=== PATIENT | female | born 1980 | race Caucasian/White ===

== ENCOUNTER 2018-02-09 12:36 | Emergency (ER) | payer OTHER ==
[~2018-02-09] VITALS: Ht 157.5 cm; Wt 61.2 kg
[~2018-02-09 12:36] MED LIST: BUSPAR PO; CIPROFLOXACIN500 M1 PO; CLONAZEPAM; CONCERTA27 MG; LATUDA20 MG PO; LEXAPRO20 MG PO; PAXIL40 MG; PRENATAL PO; PROMETHAZINE12.5 M1 PO; PYRIDIUM200 MG PO; TRILEPTAL600 MG; ULTRAM 50MG TAB50 MG PO; XANAX 0.25 MG0.25 MG PO; XANAX 0.5 MG0.5 M1; ZITHROMAX500 MG PO; ZOFRAN ODT4 MG PO; ZOLOFT 50 MG TA50 M1 PO; ZPAK PO
[2018-02-09] MEDS ORDERED: TOPAMAX 100 MG100 MG PO (13:13)
[2018-02-09 13:47] LABS: INFLUENZA A ANTIGEN None Detected (None Detect); INFLUENZA B ANTIGEN None Detected (None Detect)
[2018-02-09 14:10] VITALS: BP 130/76
== END 2018-02-09 14:11 | disposition home or self-care (01) ==
LOC: M.ERS 12:36
PROVIDERS: Nurse Practitioner Family
DX: J02.9 Acute pharyngitis, unspecified (principal); B34.9 Viral infection, unspecified; F41.9 Anxiety disorder, unspecified; F31.9 Bipolar disorder, unspecified; Z88.0 Allergy status to penicillin; Z88.1 Allergy status to other antibiotic agents

== ENCOUNTER 2020-11-03 22:13 | Emergency (ER) | payer OTHER, MEDICAID ==
[~2020-11-03] VITALS: Ht 154.9 cm; Wt 72.6 kg
[~2020-11-03 22:13] MED LIST changes: +TOPAMAX 100 MG100 MG PO
[2020-11-03] MEDS ORDERED: VYVANSE20 MG PO (22:31)
[2020-11-04] MEDS ORDERED: HYDROCODON-ACE1 EAC8 PO (00:09)
[2020-11-04] MEDS ORDERED: FLEXERIL PO ×2 (00:10)
[2020-11-04 00:40] VITALS: BP 138/74
== END 2020-11-04 00:40 | disposition home or self-care (01) ==
LOC: M.ERS 22:13
DX: S20.211A Contusion of right front wall of thorax, initial encounter (principal); M79.645 Pain in left finger(s); Z88.0 Allergy status to penicillin; Z88.1 Allergy status to other antibiotic agents; Y08.89XA Assault by other specified means, initial encounter; Y93.89 Activity, other specified; Y92.89 Other specified places as the place of occurrence of the external cause; Y99.8 Other external cause status

== ENCOUNTER 2021-04-03 10:35 | Emergency (ER) | payer OTHER, MEDICAID ==
[~2021-04-03] VITALS: Ht 157.5 cm; Wt 72.6 kg
[~2021-04-03 10:35] MED LIST changes: +FLEXERIL PO; +HYDROCODON-ACE1 EAC8 PO; +VYVANSE20 MG PO
[2021-04-03 11:25] LABS: ABSOLUTE BASOPHILS 0.1 thou/uL (0.0-0.2); ABSOLUTE EOSINOPHILS 0.3 thou/uL (0.0-0.7); ABSOLUTE MONOCYTES 0.7 thou/uL (0.0-1.2); ABSOLUTE NEUTROPHILS 9.1 thou/uL (1.6-8.1); BASOPHILS 0.9 %; EOSINOPHILS 2.1 %; HEMATOCRIT 47.1 % (37.0-47.0); HEMOGLOBIN 15.5 gm/dL (12.0-15.0); LYMPHOCYTES 16.4 %; MCH 27.6 pg (26.0-34.0); MCV 83.6 fL (80.0-100.0); MONOCYTES 5.5 %; MPV 8.1 fl. (7.2-11.1); NUCLEATED RBCS 0 /100WBC; PLATELET COUNT* 314 thou/uL (150-400); POLYS 75.1 %; RBC 5.63 mil/uL (4.20-5.00); RDW-CV 13.8 % (10.5-14.5); WBC 12.1 thou/uL (4.0-11.0)
[2021-04-03 11:37] LABS: INFLUENZA A ANTIGEN Negative (Negative); INFLUENZA B ANTIGEN Negative (Negative)
[2021-04-03 11:39] LABS: CALCIUM 9.3 mg/dL (8.5-10.1); CREATININE 0.9 mg/dL (0.6-1.3); POTASSIUM 3.8 mmol/L (3.5-5.1)
[2021-04-03 11:44] LABS: ALBUMIN 3.9 g/dL (3.4-5.0); TOTAL BILIRUBIN 0.4 mg/dL (<0.1-1.0)
[2021-04-03] MEDS ORDERED: ZOFRAN ODT4 MG PO (13:15)
[2021-04-03] MEDS ORDERED: ZPAK PO (13:15)
[2021-04-03] MEDS ORDERED: VENTOLIN HFA 1818 GM INH (13:15)
[2021-04-03 13:22] VITALS: BP 149/96
--- NOTE | 2021-04-03 13:53 | EKG ---
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 04/03/21 1353 1128 112 Bob Goyal MD, FACC /EPI
== END 2021-04-03 13:23 | disposition home or self-care (01) ==
LOC: M.ERS 10:35
PROVIDERS: Nurse Practitioner Family
DX: J98.8 Other specified respiratory disorders (principal); Z20.822 Contact with and (suspected) exposure to COVID-19; K52.9 Noninfective gastroenteritis and colitis, unspecified; Z88.1 Allergy status to other antibiotic agents; Z88.0 Allergy status to penicillin